=== PATIENT | female | born 2005 | race Caucasian/White ===

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

== ENCOUNTER 2023-01-03 11:40 | Emergency (ER) | payer MEDICAID ==
[~2023-01-03] VITALS: Ht 160 cm; Wt 90.4 kg
[~2023-01-03 11:40] MED LIST changes: -ORPH100T2 PO; +ORPH100T4 PO
[2023-01-03 11:56] VITALS: BP 110/75
[2023-01-03 14:47] LABS: MONOTEST NEGATIVE (Neg)
[2023-01-03] MEDS ORDERED: AMOX-100 PO (15:12)
== END 2023-01-03 15:24 | disposition home or self-care (01) ==
LOC: ER 11:41
DX: J02.9 Acute pharyngitis, unspecified (principal); Z20.822 Contact with and (suspected) exposure to COVID-19; J02.0 Streptococcal pharyngitis
CPT/HCPCS: 36415; 86308; 87081; 87811; 87880; 99283

== ENCOUNTER 2023-02-26 00:42 | Emergency (ER) | payer MEDICAID ==
[~2023-02-26] VITALS: Ht 154.9 cm; Wt 84.1 kg
[2023-02-26 00:57] VITALS: BP 119/64; PULSE 80; RESP 18; TEMP 98; O2SAT 98
== END 2023-02-26 05:20 | disposition home or self-care (01) ==
LOC: ER 00:43
DX: S93.402A Sprain of unspecified ligament of left ankle, initial encounter (principal); Z79.899 Other long term (current) drug therapy; W18.41XA Slipping, tripping and stumbling without falling due to stepping on object, initial encounter; Z91.81 History of falling; Y93.89 Activity, other specified; Y92.89 Other specified places as the place of occurrence of the external cause; Y99.8 Other external cause status
CPT/HCPCS: 73610; 99284

== ENCOUNTER 2023-06-25 17:11 | Emergency (ER) | payer MEDICAID ==
[~2023-06-25] VITALS: Ht 154.9 cm; Wt 94.8 kg
[2023-06-25 17:15] VITALS: RESP 16; TEMP 99.8
[2023-06-25 17:55] LABS: BASOPHILS # (AUTO) 0.1 X10'3 (0-0.2); BASOPHILS % (AUTO) 0.4 % (0-1); EOSINOPHILS # (AUTO) 0.1 X10'3 (0-0.9); EOSINOPHILS % (AUTO) 0.5 % (0-6); HEMATOCRIT 42.1 % (35.0-45.0); LYMPHOCYTES # (AUTO) 2.1 X10'3 (1.1-4.8); LYMPHOCYTES % (AUTO) 16.3 % (21-51); MEAN CORPUSCULAR HEMOGLOBIN 29.5 PG (27.0-31.0); MEAN CORPUSCULAR HGB CONC 33.2 g/dL (33.0-36.5); MEAN PLATELET VOLUME 9.2 FL (7.4-10.4); MONOCYTES # (AUTO) 0.9 X10'3 (0-0.9); NEUTROPHILS # (AUTO) 9.8 X10'3 (1.8-7.7); NEUTROPHILS % (AUTO) 75.8 % (42-75); PLATELET COUNT 284 X10'3 (140-440); RED BLOOD COUNT 4.73 X10'6 (4.20-5.60); RED CELL DISTRIBUTION WIDTH 12.7 % (11.5-14.5); WHITE BLOOD COUNT 12.9 X10'3 (4.5-11.0)
[2023-06-25 18:08] LABS: ALANINE AMINOTRANSFERASE 24 U/L (12-78); ALBUMIN 4.1 G/DL (3.4-5.0); ALBUMIN/GLOBULIN RATIO 1.4 (1.1-1.5); ALKALINE PHOSPHATASE 66 IU/L (20-180); ANION GAP 9 (8-16); ASPARTATE AMINO TRANSFERASE 15 U/L (10-37); BILIRUBIN,TOTAL 0.4 MG/DL (0.1-1.0); BLOOD UREA NITROGEN 11 MG/DL (7-18); BUN/CREATININE RATIO 17.5 (10.0-20.0); CALCIUM 8.9 MG/DL (8.5-10.1); CHLORIDE 104 MMOL/L (99-107); CREATININE 0.63 MG/DL (0.40-0.90); GLUCOSE 87 MG/DL (70-104); POTASSIUM 3.7 MMOL/L (3.5-5.1); SODIUM 138 MMOL/L (135-145); TOTAL PROTEIN 7.1 G/DL (6.4-8.2); eCRCL 108 ML/MIN; eGFR > 90 ML/MIN
[2023-06-25] MEDS ORDERED: diphenhydrAMINE 50 mg/ml inj IM ONE (19:00)
[2023-06-25] MEDS ORDERED: ketorolac trometh inj. 60 MG/2 ML VIAL IM ONE (19:00)
[2023-06-25] MEDS ORDERED: metoclopramide 5 mg/ml inj IM ONE (19:00)
[2023-06-25 19:20] VITALS: BP 109/78; PULSE 77; O2SAT 98
== END 2023-06-25 19:23 | disposition home or self-care (01) ==
LOC: ER 17:12
DX: G43.909 Migraine, unspecified, not intractable, without status migrainosus (principal); Z79.899 Other long term (current) drug therapy
CPT/HCPCS: 36415; 80053; 85025; 85651; 96372; 99284; J1885; J2765

== ENCOUNTER 2023-09-25 00:49 | Emergency (ER) | payer MEDICAID ==
[~2023-09-25] VITALS: Ht 154.9 cm; Wt 86.0 kg
[~2023-09-25 00:49] MED LIST changes: +DICY20TA17 PO; +METO-292 PO; +ONDA4TAB12 PO
[2023-09-25 00:52] VITALS: BP 130/76; PULSE 77; RESP 16; TEMP 98.2; O2SAT 99
[2023-09-25] MEDS ORDERED: CIPR2.5D21 EACHEYE (04:00)
== END 2023-09-25 04:45 | disposition home or self-care (01) ==
LOC: ER 00:49
DX: H10.89 Other conjunctivitis (principal); F17.200 Nicotine dependence, unspecified, uncomplicated; Z79.2 Long term (current) use of antibiotics; Z79.899 Other long term (current) drug therapy
CPT/HCPCS: 99283

== ENCOUNTER 2024-04-18 22:18 | Emergency (ER) | payer MEDICAID, OTHER ==
[~2024-04-18] VITALS: Ht 154.9 cm; Wt 94.5 kg
[~2024-04-18 22:18] MED LIST changes: +ONDA-243 PO; -ONDA4TAB12 PO
[2024-04-18 22:25] VITALS: BP 124/81; TEMP 98
[2024-04-18 22:46] LABS: BASOPHILS # (AUTO) 0.2 X10'3 (0-0.2); BASOPHILS % (AUTO) 1.4 % (0-1); EOSINOPHILS # (AUTO) 0.1 X10'3 (0-0.9); EOSINOPHILS % (AUTO) 0.6 % (0-6); HEMATOCRIT 45.9 % (35.0-45.0); HEMOGLOBIN 15.6 g/dl (12.0-16.0); LYMPHOCYTES # (AUTO) 0.9 X10'3 (1.1-4.8); MEAN CORPUSCULAR HEMOGLOBIN 30.8 PG (27.0-31.0); MEAN CORPUSCULAR VOLUME 90.5 FL (78-98); MEAN PLATELET VOLUME 9.1 FL (7.4-10.4); MONOCYTES # (AUTO) 0.9 X10'3 (0-0.9); MONOCYTES % (AUTO) 6.7 % (2-12); NEUTROPHILS # (AUTO) 11.4 X10'3 (1.8-7.7); NEUTROPHILS % (AUTO) 84.3 % (42-75); PLATELET COUNT 266 X10'3 (140-440); RED BLOOD COUNT 5.07 X10'6 (4.20-5.60); RED CELL DISTRIBUTION WIDTH 12.7 % (11.5-14.5); WHITE BLOOD COUNT 13.5 X10'3 (4.5-11.0)
[2024-04-18 22:56] LABS: ALANINE AMINOTRANSFERASE 31 U/L (12-78); ALBUMIN 4.3 G/DL (3.4-5.0); ALBUMIN/GLOBULIN RATIO 1.3 (1.1-1.5); ALKALINE PHOSPHATASE 64 IU/L (20-180); ANION GAP 8 (8-16); ASPARTATE AMINO TRANSFERASE 23 U/L (10-37); BILIRUBIN,TOTAL 0.8 MG/DL (0.1-1.0); BLOOD UREA NITROGEN 11 MG/DL (7-18); BUN/CREATININE RATIO 12.6 (10.0-20.0); CALCIUM 8.9 MG/DL (8.5-10.1); CHLORIDE 107 MMOL/L (99-107); CREATININE 0.87 MG/DL (0.40-0.90); GLUCOSE 110 MG/DL (70-104); LIPASE 20 U/L (16-77); POTASSIUM 4.2 MMOL/L (3.5-5.1); SODIUM 140 MMOL/L (135-145); TOTAL CARBON DIOXIDE 25.4 MMOL/L (24-32); TOTAL PROTEIN 7.7 G/DL (6.4-8.2); eCRCL 78 ML/MIN; eGFR 83 ML/MIN
[2024-04-19] MEDS: acetaminophen 325mg tablet PO ONE (01:41)
[2024-04-19] MEDS: normal saline 1000ml 1,000 ML IV ONE (01:41)
[2024-04-19] MEDS: ketorolac trometh 15mg/ml vial 15 MG/ML ML IV ONE (01:42)
[2024-04-19] MEDS: ondansetron/PF 4mg/2ml inj IV ONE (01:46)
[2024-04-19] MEDS ORDERED: ONDA-245 PO (02:43)
[2024-04-19] MEDS ORDERED: LOPE2CAP PO (02:43)
[2024-04-19 03:07] VITALS: PULSE 87; RESP 16; O2SAT 98
== END 2024-04-19 03:10 | disposition home or self-care (01) ==
LOC: ER 22:19
DX: K52.9 Noninfective gastroenteritis and colitis, unspecified (principal); Z79.899 Other long term (current) drug therapy
CPT/HCPCS: 80053; 83690; 85025; 96374; 96375; 99284; J1885; J2405; J7030

== ENCOUNTER 2024-12-17 16:54 | Emergency (ER) | payer OTHER ==
[~2024-12-17] VITALS: Ht 154.9 cm; Wt 94.5 kg
[~2024-12-17 16:54] MED LIST changes: +LOPE2CAP PO; +ONDA-245 PO
[2024-12-17 16:57] VITALS: BP 116/55; PULSE 83; TEMP 97.9; O2SAT 98
--- NOTE | 2024-12-17 17:06 | Physician Documentation ---
History of Present Illness ~ Chief Complaint: Back Pain Stated Complaint: BACK PAIN Time Seen by MD: 18:33 Primary Medical Doctor: none HPI Patient is seen today with complaints of back pain and muscle spasm from her in her scalp area and cervical spine down to her lumbar spine. Patient states she was helping transfer a patient at work and the patient's suddenly went limp and did weight and she had to catch the patient and she strained her back today. Patient denies any saddle anesthesia or changes in bowel or bladder habits. Patient denies any blunt force trauma to her spine. Patient denies any significant numbness or tingling of the upper or lower extremities. She has no other concern or complaint at this time. Patient states she does not want to have to miss work. Medication Reconciliation Allergies: Coded Allergies: No Known Allergies (Unverified , 12/17/24) Scheduled Clotrimazole (3-Day Vaginal Cream), 21 GM VG BID Dicyclomine HCl (Dicyclomine HCl), 1 TAB PO Q6H Loperamide Hcl (Loperamide), 2 CAP PO Q6H Meloxicam (Meloxicam), 1 TAB PO DAILY Methocarbamol (Methocarbamol), 1-2 TAB PO Q8H Metoclopramide HCl (Reglan), 1 TAB PO Q8H Ondansetron 8mg ODT (Ondansetron Odt), 1 TAB PO Q6H Orphenadrine Citrate (Norflex), 1 TAB PO Q12H PRN Scheduled PRN ONDANSETRON ODT 4mg tablet (Ondansetron Odt), 1 TAB PO Q6H PRN PRN for nausea/vomiting Orphenadrine Citrate (Norflex), 1 TAB PO Q12H PRN PRN for muscle spasms Miscellaneous Medications Home Med List (No Home Medications), (Reported) Past Medical History Past Medical History: No Pertinent History Past Surgical History: no surgical history Alcohol Use: None Drug Use: none Lives with: Family Lives In: Home Occupation: student, child Review of Systems Constitutional: Denies: chills, fever, weakness Eyes: Denies: pain, blurred vision ENT: Denies: ear pain, nose pain, throat pain, mouth pain Respiratory: Denies: cough, shortness of breath Cardiovascular: Denies: chest pain, palpitations Gastrointestinal: Denies: abdominal pain, nausea, vomiting Genitourinary: Denies: burning, dysuria Female Genitalia: Denies: vaginal discharge, pelvic pain Neurological: Denies: headache, dizziness Musculoskeletal: Denies: pain, swelling Integumentary: Denies: rash, lesions Allergic/Immunologic: Denies: hives, itching Hematologic/Lymphatic: Denies: no symptoms reported Psychiatric: Denies: depression, anxiety Physical Exam Physical Exam Vital Signs: Temperature: 97.9, Source: Temporal, Heart Rate: 83, Respiratory Rate: 18, BP: 116/55, Pulse Oximetry: 98, Weight: 94.500 Physical Exam General: Awake and Alert, no acute distress. HEENT: Conjunctiva pink, Sclera clear, Mucus Membranes moist. Neck: Supple without masses and tenderness. Resp: Unlabored. Lungs clear to auscultation bilaterally. Heart: Regular Rate and rhythm, normal S1 and S2 without murmur, rub or gallop. Musculoskeletal: Patient on exam does have significant decreased range of motion of the spine in all planes of motion due to pain and muscle tightness and spasm. Patient is neurovascularly intact distally of the bilateral upper and lower extremities. Motor function intact and strength intact distally. Extremities: No cyanosis,clubbing or edema. Skin: Warm and Dry. Progress Results/Orders Results/Orders Completed Orders - TESFAYE LOPEZ Ketorolac Trometh 30mg/Ml Vial (Toradol (12/17/24 19:10) Baclofen Tablet (Lioresal Tablet) (12/17/24 19:10) Vital Signs 12/17/24 16:57 Temp 97.9 Pulse 83 Resp 18 B/P (MAP) 116/55 Pulse Ox 98 Medical Decision Making Findings Patient is seen today with complaints of back pain and muscle spasm from her in her scalp area and cervical spine down to her lumbar spine. Patient states she was helping transfer a patient at work and the patient's suddenly went limp and did weight and she had to catch the patient and she strained her back today. Patient denies any saddle anesthesia or changes in bowel or bladder habits. Patient denies any blunt force trauma to her spine. Patient denies any significant numbness or tingling of the upper or lower extremities. She has no other concern or complaint at this time. Patient states she does not want to have to miss work. Patient was given Toradol 30 mg IM and baclofen 10 mg by mouth in the ED today. Patient will be off work today and tomorrow and will be able to return to light duty with a 5 lb lifting restriction. Patient will follow up with primary care in 3-5 days if no better as needed sooner. Return to ED with any worsening, concerning or changing symptoms. Prescription of meloxicam 15 mg one tab by mouth once a day to be taken with food as well as methocarbamol 750-1500 mg to be taken by mouth three to 4 times a day, for a few days sent to patient's pharmacy. Departure Disposition: HOME / SELF CARE / HOMELESS Impression: Primary Impression: Back problem Additional Impressions: Strain of lumbar region Qualified Codes: S39.012A - Strain of muscle, fascia and tendon of lower back, initial encounter Muscle spasm Condition: Stable Discharge Instructions: Acute Back Pain, Adult Additional Instructions: Patient was given Toradol 30 mg IM and baclofen 10 mg by mouth in the ED today. Patient will be off work today and tomorrow and will be able to return to light duty with a 5 lb lifting restriction. Patient will follow up with primary care in 3-5 days if no better as needed sooner. Return to ED with any worsening, concerning or changing symptoms. Prescription of meloxicam 15 mg one tab by mouth once a day to be taken with food as well as methocarbamol 750-1500 mg to be taken by mouth three to 4 times a day, for a few days sent to patient's pharmacy. Referrals: NO PRIMARY CARE PROVIDER (PCP) Prescriptions Meloxicam (Meloxicam) 15 Mg Tablet 1 TAB PO DAILY for 30 Days, #30 TAB 0 Refills Prov: TESFAYE LOPEZ 12/17/24 Methocarbamol (Methocarbamol) 750 Mg Tablet 1-2 TAB PO Q8H for 15 Days, #90 TAB 0 Refills Prov: TESFAYE LOPEZ 12/17/24 Additional Comment Medical Screen Exam History: This is a 19-year-old female who presents with lower back pain radiating up her entire back to her neck onset after lifting a patient while at were, patient reports no loss of bowel or bladder control and no new weakness or numbness in her extremities. Patient reports no radiation of pain to her legs and no paresthesias. Exam: VITALS: Reviewed and as above. GENERAL: Alert, nontoxic appearing, no apparent distress. RESPIRATORY: No increased work of breathing, no respiratory distress, speaking in full clear sentences MSE performed in triage and patient returned to ED lobby by nursing staff to a wait available ED room, patient is otherwise well-appearing hemodynamics stable and appropriate for weight and lobby The note accurately reflects work and decisions made by me.VERONICA Cowan 12/17/24 17:06 Signature Scribe Signature: No scribe Attestation: No scribe CHA TINEO INSULATING MACHINE OPERATOR Dec 17, 2024 17:06 TESFAYE LOPEZ PAC Dec 17, 2024 19:19
[2024-12-17] MEDS ORDERED: METH-798 PO (19:18)
[2024-12-17] MEDS ORDERED: MELO-102 PO (19:19)
[2024-12-17 19:49] VITALS: RESP 18
[2024-12-17] MEDS: baclofen 10mg tablet PO STA (19:49)
[2024-12-17] MEDS: ketorolac trometh 30MG/ML vial 30 MG/ML VIAL IM STA (19:49)
== END 2024-12-17 19:57 | disposition home or self-care (01) ==
LOC: ER 16:54
DX: S39.012A Strain of muscle, fascia and tendon of lower back, initial encounter (principal); M62.838 Other muscle spasm; X50.0XXA Overexertion from strenuous movement or load, initial encounter; Y93.89 Activity, other specified; Y92.89 Other specified places as the place of occurrence of the external cause; Y99.0 Civilian activity done for income or pay
CPT/HCPCS: 96372; 99283; J1885